=== PATIENT | male | born 1965 | race Caucasian/White ===

== ENCOUNTER 2020-01-13 03:20 | Emergency (ER) | payer OTHER ==
--- NOTE | 2020-01-13 03:51 | ED ---
Psych HPI <Adam Isaacs - Last Filed: 01/13/20 15:56> - General Source: patient, RN notes reviewed, old records reviewed Mode of arrival: ambulatory Limitations: no limitations - History of Present Illness MD Complaint: suicidal ideation, feels depressed -: days(s) Associated Psychiatric Symptoms: depression, racing thoughts History of same: No Quality: constant Improves With: none Worsens With: none Context: significant life stressor ( of daughter) Associated Symptoms: denies other symptoms Treatments Prior to Arrival: placed on mental health hold <Cristopher Juan - Last Filed: 01/19/20 19:24> - General Chief Complaint: Psychiatric Symptoms Stated Complaint: Mental Health Time Seen by Provider: 01/13/20 03:28 - History of Present Illness Initial Comments: This is a 54-year-old male DF for evaluation patient Dese for psychiatric evaluation. Patient has recent significant somatic episode admitted convincing himself that he contemplates whether he wants to live or . Patient's daughter recently patient states he cannot deal with grief, he states he does not know if he wants to kill himself by Melo wants to be with back with his daughter. Patient is very emotional (Cristopher Juan) - Related Data Home Medications Medication Instructions Recorded Confirmed Losartan/Hydrochlorothiazide 1 tab PO DAILY 01/13/20 01/13/20 [Losartan-Hctz 100-12.5 mg Tab] Metoprolol Tartrate [Lopressor] 100 mg PO BID 01/13/20 01/13/20 amLODIPine [Norvasc] 10 mg PO DAILY 01/13/20 01/13/20 Allergies Allergy/AdvReac Type Severity Reaction Status Date / Time No Known Allergies Allergy Verified 01/13/20 17:17 Review of Systems ROS Other: All systems not noted in ROS Statement are negative. <Adam Isaacs - Last Filed: 01/13/20 15:56> ROS Other: All systems not noted in ROS Statement are negative. <Cristopher Juan - Last Filed: 01/19/20 19:24> ROS Statement: Those systems with pertinent positive or pertinent negative responses have been documented in the HPI. Past Medical History Past Medical History: Hypertension History of Any Multi-Drug Resistant Organisms: None Reported Past Surgical History: No Surgical Hx Reported Past Psychological History: Depression Smoking Status: Current every day smoker Past Alcohol Use History: None Reported Past Drug Use History: Marijuana <Cristopher Juan - Last Filed: 01/19/20 19:24> General Exam Limitations: no limitations General appearance: alert, in no apparent distress Head exam: Present: atraumatic, normocephalic, normal inspection Eye exam: Present: normal appearance, PERRL, EOMI. Absent: scleral icterus, conjunctival injection, periorbital swelling ENT exam: Present: normal exam, mucous membranes moist Neck exam: Present: normal inspection. Absent: tenderness, meningismus, lymphadenopathy Respiratory exam: Present: normal lung sounds bilaterally. Absent: respiratory distress, wheezes, rales, rhonchi, stridor Cardiovascular Exam: Present: regular rate, normal rhythm, normal heart sounds. Absent: systolic murmur, diastolic murmur, rubs, gallop, clicks GI/Abdominal exam: Present: soft, normal bowel sounds. Absent: distended, tenderness, guarding, rebound, rigid Extremities exam: Present: normal inspection, full ROM, normal capillary refill. Absent: tenderness, pedal edema, joint swelling, calf tenderness Back exam: Present: normal inspection Neurological exam: Present: alert, oriented X3, CN II-XII intact Psychiatric exam: Present: normal affect, normal mood Skin exam: Present: warm, dry, intact, normal color. Absent: rash <Cristopher Juan - Last Filed: 01/19/20 19:24> Course <Cristopher Juan - Last Filed: 01/19/20 19:24> Vital Signs 01/13/20 01/13/20 01/13/20 03:23 08:00 10:00 Temperature 97.6 F Pulse Rate 73 Respiratory 18 16 16 Rate Blood Pressure 133/94 O2 Sat by Pulse 98 Oximetry 01/13/20 01/13/20 01/13/20 15:00 18:00 21:35 Temperature 97.9 F Pulse Rate 62 83 Respiratory 16 18 18 Rate Blood Pressure 132/68 133/81 O2 Sat by Pulse 96 98 Oximetry 01/14/20 06:16 Temperature 98.0 F Pulse Rate 90 Respiratory 16 Rate Blood Pressure 136/92 O2 Sat by Pulse 95 Oximetry - Reevaluation(s) Reevaluation #1: 01/13/20 05:55 Medical records reviewed and medically clear for psychiatric evaluation (Cristopher Juan) Medical Decision Making <Adam Isaacs - Last Filed: 01/13/20 15:56> - Lab Data Result diagrams: 01/13/20 20:27 01/13/20 20:34 <Cristopher Juan - Last Filed: 01/19/20 19:24> - Medical Decision Making Patient evaluated by mental health, will require inpatient psychiatric evaluatio n and treatment. I did complete a clinical certification on this patient with depression and risk of suicide. Patient will be transferred for acute psychiatric care. (Adam Isaacs) - Lab Data Lab Results 01/13/20 01/13/20 01/13/20 Range/Units 20:05 20:11 20:27 WBC 6.8 (3.8-10.6) k/uL RBC 4.99 (4.30-5.90) m/uL Hgb 16.1 (13.0-17.5) gm/dL Hct 48.1 (39.0-53.0) % MCV 96.4 (80.0-100.0) fL MCH 32.3 (25.0-35.0) pg MCHC 33.5 (31.0-37.0) g/dL RDW 12.1 (11.5-15.5) % Plt Count 198 (150-450) k/uL Sodium (137-145) mmol/L Potassium (3.5-5.1) mmol/L Chloride (98-107) mmol/L Carbon Dioxide (22-30) mmol/L Anion Gap mmol/L BUN (9-20) mg/dL Creatinine (0.66-1.25) mg/dL Est GFR (CKD-EPI)AfAm (>60 ml/min/1.73 sqM) Est GFR (CKD-EPI)NonAf (>60 ml/min/1.73 sqM) Glucose (74-99) mg/dL Calcium (8.4-10.2) mg/dL Urine Color Yellow Urine Appearance Cloudy (Clear) Urine pH 5.5 (5.0-8.0) Ur Specific [place] 1.025 (1.001-1.035) Urine Protein 1+ H (Negative) Urine Glucose (UA) Negative (Negative) Urine Ketones Negative (Negative) Urine Blood Negative (Negative) Urine Nitrite Negative (Negative) Urine Bilirubin Negative (Negative) Urine Urobilinogen 3.0 (<2.0) mg/dL Ur Leukocyte Esterase Negative (Negative) Urine WBC 3 (0-5) /hpf Ur Squamous Epith Cells <1 (0-4) /hpf Hyaline Casts 7 H (0-2) /lpf Urine Mucus Moderate H (None) /hpf Urine Opiates Screen Detected H (NotDetected) Ur Oxycodone Screen Not Detected (NotDetected) Urine Methadone Screen Not Detected (NotDetected) Ur Propoxyphene Screen Not Detected (NotDetected) Ur Barbiturates Screen Not Detected (NotDetected) U Tricyclic Antidepress Not Detected (NotDetected) Ur Phencyclidine Scrn Not Detected (NotDetected) Ur Amphetamines Screen Not Detected (NotDetected) U Methamphetamines Scrn Not Detected (NotDetected) U Benzodiazepines Scrn Detected H (NotDetected) Urine Cocaine Screen Detected H (NotDetected) U Marijuana (THC) Screen Detected H (NotDetected) Coronavirus (PCR) (Not Detected) 01/13/20 01/13/20 Range/Units 20:27 20:34 WBC (3.8-10.6) k/uL RBC (4.30-5.90) m/uL Hgb (13.0-17.5) gm/dL Hct (39.0-53.0) % MCV (80.0-100.0) fL MCH (25.0-35.0) pg MCHC (31.0-37.0) g/dL RDW (11.5-15.5) % Plt Count (150-450) k/uL Sodium 138 (137-145) mmol/L Potassium 3.7 (3.5-5.1) mmol/L Chloride 104 (98-107) mmol/L Carbon Dioxide 26 (22-30) mmol/L Anion Gap 8 mmol/L BUN 12 (9-20) mg/dL Creatinine 1.28 H (0.66-1.25) mg/dL Est GFR (CKD-EPI)AfAm 72 (>60 ml/min/1.73 sqM) Est GFR (CKD-EPI)NonAf 62 (>60 ml/min/1.73 sqM) Glucose 94 (74-99) mg/dL Calcium 9.4 (8.4-10.2) mg/dL Urine Color Urine Appearance (Clear) Urine pH (5.0-8.0) Ur Specific [place] (1.001-1.035) Urine Protein (Negative) Urine Glucose (UA) (Negative) Urine Ketones (Negative) Urine Blood (Negative) Urine Nitrite (Negative) Urine Bilirubin (Negative) Urine Urobilinogen (<2.0) mg/dL Ur Leukocyte Esterase (Negative) Urine WBC (0-5) /hpf Ur Squamous Epith Cells (0-4) /hpf Hyaline Casts (0-2) /lpf Urine Mucus (None) /hpf Urine Opiates Screen (NotDetected) Ur Oxycodone Screen (NotDetected) Urine Methadone Screen (NotDetected) Ur Propoxyphene Screen (NotDetected) Ur Barbiturates Screen (NotDetected) U Tricyclic Antidepress (NotDetected) Ur Phencyclidine Scrn (NotDetected) Ur Amphetamines Screen (NotDetected) U Methamphetamines Scrn (NotDetected) U Benzodiazepines Scrn (NotDetected) Urine Cocaine Screen (NotDetected) U Marijuana (THC) Screen (NotDetected) Coronavirus (PCR) Not Detected (Not Detected) Disposition Is patient prescribed a controlled substance at d/c from ED?: No <Adam Isaacs N - Last Filed: 01/13/20 15:56> Is patient prescribed a controlled substance at d/c from ED?: No <Cristopher Juan - Last Filed: 01/19/20 19:24> Clinical Impression: Depression, Suicidal ideation, Adjustment reaction of adult life Disposition: TRANSFER TO PSYCH HOSP/UNIT Condition: Fair Referrals: Ellis Negrete MD [Primary Care Provider] - 1-2 days
[2020-01-13 20:21] LABS: Appearance,Urine Cloudy (Clear); Bilirubin,Urine Negative (Negative); Blood,Urine Negative (Negative); Color,Urine Yellow; Glucose,Urine (UA) Negative (Negative); Hyaline Casts,Urine 7 /lpf (0-2); Ketones,Urine Negative (Negative); Leukocyte Esterase,Urine Negative (Negative); Mucus,Urine Moderate /hpf; Nitrite,Urine Negative (Negative); PH, Urine 5.5 (5.0-8.0); Protein,Urine 1+ (Negative); Specific Gravity,Urine 1.025 (1.001-1.035); Squamous Epithelial Cell,Urine <1 /hpf (0-4); WBC,Urine 3 /hpf (0-5)
[2020-01-13 20:36] LABS: Amphetamine Screen,Urine Not Detected (NotDetected); Barbiturate Screen,Urine Not Detected (NotDetected); Benzodiazepines Screen,Urine Detected (NotDetected); Cocaine Screen,Urine Detected (NotDetected); Methadone Screen, Urine Not Detected (NotDetected); Opiate Screen,Urine Detected (NotDetected); Oxycodone Screen, Urine Not Detected (NotDetected); Phencyclidine Screen,Urine Not Detected (NotDetected); Tricyclic Antidepressant,Urine Not Detected (NotDetected); Urn Cannabinoid Scrn Detected (NotDetected)
[2020-01-13 20:42] LABS: HCT 48.1 % (39.0-53.0); HGB 16.1 gm/dL (13.0-17.5); MCH 32.3 pg (25.0-35.0); MCHC 33.5 g/dL (31.0-37.0); MCV 96.4 fL (80.0-100.0); Platelet Count 198 k/uL (150-450); RBC 4.99 m/uL (4.30-5.90); RDW 12.1 % (11.5-15.5); WBC 6.8 k/uL (3.8-10.6)
[2020-01-13 21:01] LABS: Calcium 9.4 mg/dL (8.4-10.2); Potassium 3.7 mmol/L (3.5-5.1)
[2020-01-14 06:20] VITALS: BP 136/92; PULSE 90; RESP 16; TEMP 98
== END 2020-01-14 07:18 | disposition other institution (70) ==
LOC: EC 03:20
DX: Z03.818 Encounter for observation for suspected exposure to other biological agents ruled out (principal); R45.851 Suicidal ideations; F32.9 Major depressive disorder, single episode, unspecified; F17.200 Nicotine dependence, unspecified, uncomplicated
CPT/HCPCS: 82075; 36415; 80048; 85027; 81001; 80306; 99285; U0003